=== PATIENT | male | born 1925 | race Two or more races ===

== ENCOUNTER → 2016-06-12 | Outpatient (CLI) | payer MEDICARE, BC ==
--- NOTE | 2016-06-12 14:37 | RADRPT ---
PROCEDURE: XR bilateral knees. CLINICAL INDICATION: Knee pain. TECHNIQUE: AP weightbearing, lateral weightbearing and sunrise views of each knee are available fo r review. 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 There is no evidence of loosening of the prosthesis. Th ere is no evidence of hardware failure. The osseous structures are normal in mineralization, archite cture and alignment No acute fracture or dislocation is seen.No osseous lesions are identified. The soft tissues are unremarkable . there is bilateral arterial vascular calcification. There is a vas cular stent on the left. IMPRESSION: Unremarkable bilateral total knee replacements. RPTAT: [facility] .Van Coto MD, MD Date Time Electronically viewed and signed by .Van Coto MD, on 06/12/2016 14:36 .B/
== END | disposition home or self-care (01) ==
LOC: HKI 13:19
PROVIDERS: ATTEND Orthopaedic Surgery
DX: Z09 Encounter for follow-up examination after completed treatment for conditions other than malignant neoplasm (principal); M16.12 Unilateral primary osteoarthritis, left hip; Z96.653 Presence of artificial knee joint, bilateral
CPT/HCPCS: 73562; G0463